=== PATIENT | female | born 1970 | race Caucasian/White ===

== ENCOUNTER 2017-06-24 22:36 | Emergency (ER) | payer SELFPAY ==
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
[2017-06-25 00:15] VITALS: BP 113/73; PULSE 90; RESP 18; TEMP 97.5; O2SAT 98
== END 2017-06-25 00:15 | disposition home or self-care (01) ==
DX: Z46.89 Encounter for fitting and adjustment of other specified devices (principal); F17.200 Nicotine dependence, unspecified, uncomplicated